=== PATIENT | male | born 1965 | race Caucasian/White ===

== ENCOUNTER 2022-06-09 06:27 | Observation (INO) ==
[2022-06-09] MEDS ORDERED: Naloxone 0.4 MG/ML INJ IVP PRN (11:23)
[2022-06-09] MEDS ORDERED: Ondansetron 4 MG/2 ML VIAL IVP PRN (11:23)
[2022-06-09] MEDS ORDERED: Perflutren Lipid Microsphere 1.3 ML in 0.9 % Sodium Chloride 8.7 ML IVP PRN (11:26)
[2022-06-09] MEDS ORDERED: 0.9 % Sodium Chloride 1,000 ML IVC SCH (11:30)
[2022-06-09] MEDS: amLODIPine 5 MG TABLET PO SCH (11:44)
[2022-06-09 15:46] LABS: Influenza A PCR Negative (Negative); Influenza B PCR Negative (Negative); Resp. Syncytial Virus PCR Negative (Negative)
[2022-06-09 15:53] LABS: SARS-CoV-2 by PCR (In House) Positive (Negative)
[2022-06-09 20:45] VITALS: O2SAT 98
[2022-06-10] MEDS: amLODIPine 5 MG TABLET PO SCH (05:43)
[2022-06-10 07:28] VITALS: BP 165/98; PULSE 68; TEMP 98.6
[2022-06-10 12:08] LABS: BUN/Creatinine Ratio 10 (6-26); Blood Urea Nitrogen 10 mg/dL (6-20); Calcium 8.7 mg/dL (8.6-10.3); Carbon Dioxide 30 mEq/L (23-29); Chloride 104 mEq/L (98-107); Glucose 100 mg/dL (70-105); Osmolality,Calculated 293 (280-300); Potassium 3.1 mEq/L (3.5-5.1); Sodium 142 mEq/L (136-145); eGFR For African Americans > 60 (> 60); eGFR For Non-African Americans > 60 (> 60)
== END 2022-06-10 11:36 | disposition home or self-care (01) ==
LOC: 2NENU
PROVIDERS: ADMIT Family Medicine; ATTEND Family Medicine